=== PATIENT | female | born 1960 | race Caucasian/White ===

== ENCOUNTER → 2016-04-08 | Outpatient (CLI) | payer BC ==
[2016-04-08 08:29] LABS: Basophils % (A) 1 %; CH 32.1; CHCM 33.3; Eosinophils # (A) 0.3 k/uL (0-0.7); Eosinophils % (A) 6 %; HCT 45.1 % (34.0-46.0); HDW 2.27; HGB 14.6 gm/dL (11.4-16.0); Luc # (Auto) 0.15; Luc % (Auto) 3; Lymphocytes # (A) 2.1 k/uL (1.0-4.8); Lymphocytes % (A) 41 %; MCH 31.4 pg (25.0-35.0); MCHC 32.5 g/dL (31.0-37.0); MCV 96.7 fL (80.0-100.0); Mean Platelet Volume 9.3; Monocytes # (A) 0.3 k/uL (0-1.0); Monocytes % (A) 7 %; Neutrophils # (A) 2.1 k/uL (1.3-7.7); Neutrophils % (A) 43 %; RBC 4.66 m/uL (3.80-5.40); RDW 11.8 % (11.5-15.5); WBC (Perox) 4.97
[2016-04-08 08:42] LABS: ALT 37 U/L (9-52); AST 21 U/L (14-36); Alkaline Phosphatase 61 U/L (38-126); Anion Gap 11 mmol/L; Blood Urea Nitrogen 24 mg/dL (7-17); Calcium 9.5 mg/dL (8.4-10.2); Carbon Dioxide 27 mmol/L (22-30); Chloride 105 mmol/L (98-107); Cholesterol 226 mg/dL (<200); Glucose 97 mg/dL (74-99); HDL Cholesterol 92 mg/dL (40-60); Non-African American GFR(MDRD) >60 (>60 ml/min/1.73 sqM); Potassium 4.3 mmol/L (3.5-5.1); Sodium 143 mmol/L (137-145); Total Bilirubin 1.3 mg/dL (0.2-1.3); Total Protein 7.5 g/dL (6.3-8.2); Triglycerides 78 mg/dL (<150)
== END | disposition home or self-care (01) ==
LOC: LABWHC1 07:19
PROVIDERS: ATTEND Family Medicine
DX: M79.671 Pain in right foot (principal); Z13.220 Encounter for screening for lipoid disorders; Z13.29 Encounter for screening for other suspected endocrine disorder
CPT/HCPCS: 36415; 80053; 80061; 84443; 85025

== ENCOUNTER → 2016-08-25 | Outpatient (CLI) | payer BC ==
--- NOTE | 2016-08-26 10:31 | ECHOF ---
Referral Reason:R60.9 edema Z82.79 fa hx of other congenital malformation MEASUREMENTS -------- HEIGHT: 160.0 cm WEIGHT: 70.8 kg BP: IVSd: 1.1 cm (0.6 - 1.1) LVIDd: 4.1 cm (3.9 - 5.3) LVPWd: 0.8 cm (0.6 - 1.1) IVSs: 1.2 cm LVIDs: 2.8 cm LVPWs: 1.5 cm Ao Diam: 3.0 cm (2.0 - 3.7) AV Cusp: 1.9 cm (1.5 - 2.6) LA Diam: 2.8 cm (2.7 - 3.8) MV EXCURSION: 19.740 mm (> 18.000) MV EF SLOPE: 66 mm/s (70 - 150) EPSS: 0.5 cm MV E Devonte: 0.45 m/s MV DecT: 143 ms MV A Devonte: 0.88 m/s MV E/A Ratio: 0.51 RAP: 5.00 mmHg RVSP: 29.91 mmHg FINDINGS -------- Sinus rhythm. This was a technically good study. Left ventricular wall thickness is normal. Overall left ventricular systolic function is low-normal with, an EF between 50 - 55 %. The right ventricle is normal in size and function. The left atrium is normal in size. The right atrium is normal in size. The aortic valve is trileaflet, and appears structurally normal. No aortic stenosis or regurgitation. The mitral valve leaflets are mildly thickened. Mild mitral regurgitation is present. Mild tricuspid regurgitation present. The right ventricular systolic pressure, as measured by Doppler, is 29.91mmHg. Pulmonic valve appears structurally normal. The aortic root size is normal. The pericardium is normal. CONCLUSIONS -------- 1. Sinus rhythm. 2. Mild mitral regurgitation is present. 3. Mild tricuspid regurgitation present. 4. The right ventricular systolic pressure, as measured by Doppler, is 29.91mmHg. 5. Pulmonic valve appears structurally normal. 6. The aortic root size is normal. 7. The pericardium is normal. 8. This was a technically good study. 9. Left ventricular wall thickness is normal. 10. Overall left ventricular systolic function is low-normal with, an EF between 50 - 55 %. 11. The right ventricle is normal in size and function. 12. The left atrium is normal in size. 13. The right atrium is normal in size. 14. The aortic valve is trileaflet, and appears structurally normal. No aortic stenosis or regurgitation. 15. The mitral valve leaflets are mildly thickened. [employer] B[employer]ER: Clarita Cabello RDCS
== END | disposition home or self-care (01) ==
LOC: RADECHMAIN 12:42
PROVIDERS: ATTEND Family Medicine
DX: Z82.79 Family history of other congenital malformations, deformations and chromosomal abnormalities (principal)
CPT/HCPCS: 93306

== ENCOUNTER 2017-01-16 15:18 | Emergency (ER) | payer BC ==
[2017-01-16 16:12] VITALS: RESP 18
--- NOTE | 2017-01-16 16:12 | ED ---
General Adult HPI - General Chief complaint: Chest Pain Stated complaint: Dr Sent/EKG Time Seen by Provider: 01/16/17 16:00 Source: patient, RN notes reviewed, old records reviewed Mode of arrival: ambulatory Limitations: no limitations - History of Present Illness Initial comments: This is a 36-year-old female to the ER for evaluation of possible EKG changes. Patient had pre-surgical evaluation by family doctor within the ER for possible EKG changes. Patient is asymptomatic is been a synthetic is no chest pain or shortness of breath. Patient suffers from occasional high blood pressure doesn' t with a mildly anxious of the time is a strong family history of heart disease but again denies any symptoms at this time. - Related Data Home Medications Medication Instructions Recorded Confirmed Dextroamphetamine/Amphetamine 30 mg PO DAILY 12/19/13 01/16/17 [Adderall Xr] Ibuprofen [Motrin] 800 mg PO BID PRN 01/16/17 01/16/17 [place]-3 Fatty Acids/Fish Oil [Fish 1 cap PO DAILY 01/16/17 01/16/17 Oil 1,000 mg Softgel] Turmeric Root Extract [Turmeric] 500 mg PO DAILY 01/16/17 01/16/17 Allergies Allergy/AdvReac Type Severity Reaction Status Date / Time adhesive Allergy Rash/Hives Verified 01/16/17 16:25 codeine AdvReac Nausea & Verified 01/16/17 16:25 Vomiting Review of Systems ROS Statement: Those systems with pertinent positive or pertinent negative responses have been documented in the HPI. ROS Other: All systems not noted in ROS Statement are negative. Past Medical History Past Medical History: No Reported History History of Any Multi-Drug Resistant Organisms: None Reported Past Surgical History: Cholecystectomy, Tubal Ligation Additional Past Surgical History / Comment(s): shoulder Past Psychological History: ADD/ADHD Smoking Status: Never smoker Past Alcohol Use History: Daily Past Drug Use History: None Reported General Exam Limitations: no limitations General appearance: alert, in no apparent distress Head exam: Present: atraumatic, normocephalic, normal inspection Eye exam: Present: normal appearance, PERRL, EOMI. Absent: scleral icterus, conjunctival injection, periorbital swelling ENT exam: Present: normal exam, mucous membranes moist Neck exam: Present: normal inspection. Absent: tenderness, meningismus, lymphadenopathy Respiratory exam: Present: normal lung sounds bilaterally. Absent: respiratory distress, wheezes, rales, rhonchi, stridor Cardiovascular Exam: Present: regular rate, normal rhythm, normal heart sounds. Absent: systolic murmur, diastolic murmur, rubs, gallop, clicks GI/Abdominal exam: Present: soft, normal bowel sounds. Absent: distended, tenderness, guarding, rebound, rigid Extremities exam: Present: normal inspection, full ROM, normal capillary refill. Absent: tenderness, pedal edema, joint swelling, calf tenderness Back exam: Present: normal inspection Neurological exam: Present: alert, oriented X3, CN II-XII intact Psychiatric exam: Present: normal affect, normal mood Skin exam: Present: warm, dry, intact, normal color. Absent: rash Course Vital Signs 01/16/17 01/16/17 16:04 16:59 Temperature 97.8 F Pulse Rate 78 74 Respiratory 18 18 Rate Blood Pressure 182/84 128/66 O2 Sat by Pulse 98 99 Oximetry - Reevaluation(s) Reevaluation #1: 01/16/17 17:36 Patient remains without symptoms of chest pain EKG Findings - EKG Comments: EKG Findings:: EKG shows normal sinus rhythm rate of 84, WV 132, QRS 100, QTC 482. Compared to old EKG there is no change morphologically Medical Decision Making - Medical Decision Making 56 female in the ER for evaluation of possible troponin is negative and patient is without any symptoms. Patient will be discharged home - Lab Data Result diagrams: 01/16/17 14:10 01/16/17 14:10 Lab Results 01/16/17 01/16/17 01/16/17 Range/Units 14:10 14:10 14:10 WBC 6.3 (3.8-10.6) k/uL RBC 4.32 (3.80-5.40) m/uL Hgb 13.9 (11.4-16.0) gm/dL Hct 41.3 (34.0-46.0) % MCV 95.6 (80.0-100.0) fL MCH 32.1 (25.0-35.0) pg MCHC 33.6 (31.0-37.0) g/dL RDW 11.7 (11.5-15.5) % Plt Count 256 (150-450) k/uL Neutrophils % 62 % Lymphocytes % 25 % Monocytes % 6 % Eosinophils % 3 % Basophils % 1 % Neutrophils # 3.9 (1.3-7.7) k/uL Lymphocytes # 1.6 (1.0-4.8) k/uL Monocytes # 0.4 (0-1.0) k/uL Eosinophils # 0.2 (0-0.7) k/uL Basophils # 0.0 (0-0.2) k/uL PT (9.0-12.0) sec INR (<1.2) APTT (22.0-30.0) sec Sodium 140 (137-145) mmol/L Potassium 3.9 (3.5-5.1) mmol/L Chloride 105 (98-107) mmol/L Carbon Dioxide 23 (22-30) mmol/L Anion Gap 12 mmol/L BUN 15 (7-17) mg/dL Creatinine 0.61 (0.52-1.04) mg/dL Est GFR (MDRD) Af Amer >60 (>60 ml/min/1.73 sqM) Est GFR (MDRD) Non-Af >60 (>60 ml/min/1.73 sqM) Glucose 86 (74-99) mg/dL Calcium 9.4 (8.4-10.2) mg/dL Magnesium 2.0 (1.6-2.3) mg/dL Total Bilirubin 1.0 (0.2-1.3) mg/dL AST 19 (14-36) U/L ALT 25 (9-52) U/L Alkaline Phosphatase 70 (38-126) U/L Total Creatine Kinase 25 L (30-135) U/L CK-MB (CK-2) 0.6 (0.0-2.4) ng/mL CK-MB (CK-2) Rel Index 2.4 Troponin I <0.012 (0.000-0.034) ng/mL Total Protein 7.3 (6.3-8.2) g/dL Albumin 4.3 (3.5-5.0) g/dL 01/16/17 Range/Units 14:10 WBC (3.8-10.6) k/uL RBC (3.80-5.40) m/uL Hgb (11.4-16.0) gm/dL Hct (34.0-46.0) % MCV (80.0-100.0) fL MCH (25.0-35.0) pg MCHC (31.0-37.0) g/dL RDW (11.5-15.5) % Plt Count (150-450) k/uL Neutrophils % % Lymphocytes % % Monocytes % % Eosinophils % % Basophils % % Neutrophils # (1.3-7.7) k/uL Lymphocytes # (1.0-4.8) k/uL Monocytes # (0-1.0) k/uL Eosinophils # (0-0.7) k/uL Basophils # (0-0.2) k/uL PT 10.9 (9.0-12.0) sec INR 1.1 (<1.2) APTT 24.1 (22.0-30.0) sec Sodium (137-145) mmol/L Potassium (3.5-5.1) mmol/L Chloride (98-107) mmol/L Carbon Dioxide (22-30) mmol/L Anion Gap mmol/L BUN (7-17) mg/dL Creatinine (0.52-1.04) mg/dL Est GFR (MDRD) Af Amer (>60 ml/min/1.73 sqM) Est GFR (MDRD) Non-Af (>60 ml/min/1.73 sqM) Glucose (74-99) mg/dL Calcium (8.4-10.2) mg/dL Magnesium (1.6-2.3) mg/dL Total Bilirubin (0.2-1.3) mg/dL AST (14-36) U/L ALT (9-52) U/L Alkaline Phosphatase (38-126) U/L Total Creatine Kinase (30-135) U/L CK-MB (CK-2) (0.0-2.4) ng/mL CK-MB (CK-2) Rel Index Troponin I (0.000-0.034) ng/mL Total Protein (6.3-8.2) g/dL Albumin (3.5-5.0) g/dL Disposition Clinical Impression: Normal ECG, Well adult exam Disposition: HOME SELF-CARE Condition: Good Instructions: Normal Exam (ED) Referrals: Dakota Graff III, MD [Primary Care Provider] - 1-2 days
[2017-01-16 16:29] LABS: Basophils % (A) 1 %; CHCM 33.5; Eosinophils # (A) 0.2 k/uL (0-0.7); Eosinophils % (A) 3 %; HCT 41.3 % (34.0-46.0); HDW 2.29; HGB 13.9 gm/dL (11.4-16.0); Luc # (Auto) 0.17; Luc % (Auto) 3; Lymphocytes # (A) 1.6 k/uL (1.0-4.8); Lymphocytes % (A) 25 %; MCH 32.1 pg (25.0-35.0); MCHC 33.6 g/dL (31.0-37.0); MCV 95.6 fL (80.0-100.0); Mean Platelet Volume 8.2; Monocytes # (A) 0.4 k/uL (0-1.0); Monocytes % (A) 6 %; Neutrophils # (A) 3.9 k/uL (1.3-7.7); Neutrophils % (A) 62 %; RBC 4.32 m/uL (3.80-5.40); RDW 11.7 % (11.5-15.5); WBC 6.3 k/uL (3.8-10.6); WBC (Perox) 6.07
[2017-01-16 16:38] LABS: ALT 25 U/L (9-52); AST 19 U/L (14-36); Alkaline Phosphatase 70 U/L (38-126); Anion Gap 12 mmol/L; Blood Urea Nitrogen 15 mg/dL (7-17); Calcium 9.4 mg/dL (8.4-10.2); Carbon Dioxide 23 mmol/L (22-30); Chloride 105 mmol/L (98-107); Glucose 86 mg/dL (74-99); Non-African American GFR(MDRD) >60 (>60 ml/min/1.73 sqM); Potassium 3.9 mmol/L (3.5-5.1); Sodium 140 mmol/L (137-145); Total Protein 7.3 g/dL (6.3-8.2)
[2017-01-16 16:40] LABS: INR 1.1 (<1.2); Partial Thromboplastin Time 24.1 sec (22.0-30.0); Prothrombin Time 10.9 sec (9.0-12.0)
[2017-01-16 16:51] LABS: Creatine Kinase 25 U/L (30-135)
[2017-01-16 17:04] LABS: Creatine Kinase MB 0.6 ng/mL (0.0-2.4); Troponin I <0.012 ng/mL (0.000-0.034)
[2017-01-16 17:47] VITALS: BP 138/85; PULSE 68; TEMP 98.1
== END 2017-01-16 17:57 | disposition home or self-care (01) ==
LOC: EC 15:18
DX: Z00.00 Encounter for general adult medical examination without abnormal findings (principal); F90.9 Attention-deficit hyperactivity disorder, unspecified type; Z79.899 Other long term (current) drug therapy; Z88.5 Allergy status to narcotic agent; Z91.048 Other nonmedicinal substance allergy status
CPT/HCPCS: 36415; 80053; 82550; 82553; 83735; 84484; 85025; 85610; 85730; 93005; 99285

== ENCOUNTER → 2017-01-31 | Outpatient (CLI) | payer BC ==
[~2017-01-31] MED LIST: REGADENOSON 0.4 MG/5 ML SYRINGE IV ONE
--- NOTE | 2017-01-31 11:24 | NM ---
EXAMINATION TYPE: NM stress lexiscan cardiolite DATE OF EXAM: 01/31/2017 COMPARISON: NONE HISTORY: 56-year-old female edema and abnormal EKG TECHNIQUE: After the intravenous administration of 11.9 mCi Tc 99m Sestamibi - Cardiolite resting SP ECT images acquired 45 minutes post injection. The patient received 0.4mg Lexiscan, 27.9 mCi Tc 99m Sestamibi - Stress images obtained [address] injection FINDINGS: Review of stress and rest SPECT images demonstrates no distinct perfusion abnormality. There is promi nent GI artifact limiting assessment of the inferior wall. Gated analysis shows normal wall motion w ith an estimated left ventricular ejection fraction of 55 %. TID is calculated at 1.03, within jaren l limits. IMPRESSION: Prominent GI artifact limiting assessment of the inferior wall. No convincing scintigraphic evidence for reversible ischemia.
--- NOTE | 2017-01-31 13:01 | EST ---
EXERCISE STRESS AGE: 56 SEX: F HT: 64" WT: 154 PROTOCOL: Lexiscan Cardiolite Stress Test HEART RATE REST: 70 BLOOD PRESSURE REST: 126/79 MAXIMUM HEART RATE ACHIEVED: 96 MAXIMUM BLOOD PRESSURE: 126/79 INDICATIONS: Abnormal EKG. CLINICAL INFORMATION: Baseline rhythm is sinus mechanism, rate of 70, normal axis, left bundle branch block. Baseline blood pressure 126/79 mmHg. Patient received an injection of Lexiscan. Electrocardiographic monitoring revealed no evidence of diagnostic ischemic ST deviation. Cardiolite was injected per protocol. CONCLUSION: 1. Nondiagnostic electrocardiographic stress testing. 2. Nuclear images will be reported separately. MMODL / IJN: [id number] /
== END ==
LOC: RADNMMAIN 08:39
PROVIDERS: ATTEND Family Medicine
DX: R94.31 Abnormal electrocardiogram [ECG] [EKG] (principal); R60.9 Edema, unspecified
CPT/HCPCS: 93017; 78452; A9500; J2785

== ENCOUNTER → 2018-04-11 | Outpatient (CLI) | payer BC ==
--- NOTE | 2018-04-14 12:23 | MM ---
Reason for exam: screening (asymptomatic). Last mammogram was performed 2 years and 7 months ago. History: Patient is postmenopausal. Took hormonal contraceptives for 2 years. MG Screening Mammo w CAD Bilateral CC and MLO view(s) were taken. Prior study comparison: September 16, 2015, bilateral MG screening mammo w CAD. May 02, 2014, bilateral MG work up mamm w CAD BILAT. The breast tissue is heterogeneously dense. This may lower the sensitivity of mammography. No suspicious abnormality. No significant changes when compared with prior studies. ASSESSMENT: Negative, BI-RAD 1 RECOMMENDATION: Routine screening mammogram of both breasts in 1 year.
== END | disposition home or self-care (01) ==
LOC: RADMAMWWP 09:06
PROVIDERS: ATTEND Family Medicine
DX: Z12.31 Encounter for screening mammogram for malignant neoplasm of breast (principal)
CPT/HCPCS: 77067

== ENCOUNTER → 2019-10-16 | Outpatient (CLI) | payer BC ==
--- NOTE | 2019-10-16 10:58 | MM ---
Reason for exam: screening (asymptomatic). Last mammogram was performed 1 year and 6 months ago. History: Patient is postmenopausal. Took hormonal contraceptives for 2 years. Physical Findings: A clinical breast exam by your physician is recommended on an annual basis and results should be correlated with mammographic findings. MG Screening Mammo w CAD Bilateral CC and MLO view(s) were taken. Prior study comparison: April 11, 2018, bilateral MG screening mammo w CAD. September 16, 2015, bilateral MG screening mammo w CAD. The breast tissue is heterogeneously dense. This may lower the sensitivity of mammography. Focal asymmetry left anterior upper outer quadrant. This finding is changed when compared with previous exams. ASSESSMENT: Incomplete: need additional imaging evaluation, BI-RAD 0 RECOMMENDATION: Special view mammogram of the left breast. If lesion persists on supplemental views, image directed ultrasound is recommended. [facility] will attempt to contact patient to return for supplemental views and ultrasound if indicated.
== END | disposition home or self-care (01) ==
LOC: RADMAMWWP 07:54
PROVIDERS: ATTEND Family Medicine
DX: Z12.31 Encounter for screening mammogram for malignant neoplasm of breast (principal)
CPT/HCPCS: 77067

== ENCOUNTER 2019-11-12 09:23 | Day surgery (SDC) | payer BC, MEDICARE ==
[2019-11-07 15:23] VITALS: BMI 29.2
[~2019-11-12 09:23] MED LIST changes: +LACTATED RINGERS 1,000 ML IV SCH; +LIDOCAINE 1% (10MG/ML) FOR IV START INTRADERMA PRN; -REGADENOSON 0.4 MG/5 ML SYRINGE IV ONE
[2019-11-12 09:56] VITALS: TEMP 97.8
[2019-11-12] MEDS ORDERED: ONDANSETRON 4 MG/2 ML VIAL ONE (10:10)
[2019-11-12] MEDS ORDERED: PROPOFOL 10 MG/ML 20 ML VIAL IV ONE (10:23)
[2019-11-12] MEDS ORDERED: LIDOCAINE 1% INJ 10MG/ML (20 ML MDV) ONE (10:23)
[2019-11-12] MEDS ORDERED: GLYCOPYRROLATE 0.2 MG/ML 2 ML VIAL ONE (10:23)
--- NOTE | 2019-11-12 10:27 | P.GSHP ---
History of Present Illness H&P Date: 11/12/19 Chief Complaint: GERD, colon cancer screening 59-year-old female known to our service. She is here today for upper and lower endoscopy. Last colonoscopy 5-6 years ago. No family history of colon cancer. May have a history of polyps. Also complaints of GERD and occasional dysphagia. Mild abdominal pain. Past Medical History Past Medical History: Hyperlipidemia Additional Past Medical History / Comment(s): HAS BEEN HAVING PRBLEMS WITH FATIGUE AND SOB. STRONG FAMILY HX OF HEART DISEASE. " 3 [facility]AN[facility] HEART VALVES" History of Any Multi-Drug Resistant Organisms: None Reported Past Surgical History: Cholecystectomy, Orthopedic Surgery, Tubal Ligation Additional Past Surgical History / Comment(s): shoulder SX. HAVING COLONOSCOPY 11/12/19 Past Anesthesia/Blood Transfusion Reactions: Family History of Problems w/ Anesthesia, Motion Sickness, Postoperative Nausea & Vomiting (PONV) Additional Past Anesthesia/Blood Transfusion Reaction / Comment(s): MOM-PONV Past Psychological History: ADD/ADHD Smoking Status: Never smoker Past Alcohol Use History: Daily Past Drug Use History: None Reported - Past Family History Mother Family Medical History: Congestive Heart Failure (CHF), COPD, Coronary Artery Disease (CAD), Hyperlipidemia, Hypertension, Myocardial Infarction (PA) Brother(s) Family Medical History: Coronary Artery Disease (CAD), Myocardial Infarction (PA) Medications and Allergies Home Medications Medication Instructions Recorded Confirmed Type Dextroamphetamine/Amphetamine 30 mg PO DIRECTED 12/19/13 11/11/19 History [Adderall Xr] Turmeric Root Extract [Turmeric] 500 mg PO DAILY 01/16/17 11/11/19 History Atorvastatin Calcium [Lipitor] 20 mg PO HS 11/07/19 11/11/19 History Bacillus Coagulans [Digestive 1 each PO DAILY 11/07/19 11/11/19 History Advantage Probiotic-Prebiotic combo] Cla 1 tab PO DAILY 11/07/19 11/11/19 History Co Q-10 With Red Yeast Rice 1 tab PO DAILY 11/07/19 11/11/19 History Carol 500 mg PO DAILY 11/07/19 11/11/19 History Multivitamins, Thera [Multivitamin 1 tab PO DAILY 11/07/19 11/11/19 History (formulary)] Vitamin C/Biotin [Hair, Skin and 1 tab PO DAILY 11/07/19 11/11/19 History Nails] Allergies Allergy/AdvReac Type Severity Reaction Status Date / Time adhesive Allergy Rash/Hives Verified 11/11/19 12:28 codeine AdvReac Nausea & Verified 11/11/19 12:28 Vomiting Surgical - Exam Vital Signs Temp Pulse Resp BP Pulse Ox 97.8 F 75 20 140/77 97 11/12/19 09:54 11/12/19 09:54 11/12/19 09:54 11/12/19 09:54 11/12/19 09:54 Physical exam: General: Well-developed, well-nourished HEENT: Normocephalic, sclerae nonicteric Abdomen: Nontender, nondistended Extremities: No edema Neuro: Alert and oriented Assessment and Plan (1) GERD (gastroesophageal reflux disease) Narrative/Plan: Will proceed with upper and lower endoscopy Current Visit: Yes Status: Acute Code(s): K21.9 - GASTRO-ESOPHAGEAL REFLUX DISEASE WITHOUT ESOPHAGITIS SNOMED Code(s): 623465378
--- NOTE | 2019-11-12 10:55 | P.PCN ---
Date of Procedure: 11/12/19 Procedure(s) Performed: PREOPERATIVE DIAGNOSIS: GERD, dysphagia, colon cancer screening POSTOPERATIVE DIAGNOSIS: Gastritis, small hiatal hernia, distal esophagitis, ascending colon polyp PROCEDURE: 1. EGD with biopsy 2. Colonoscopy with snare polypectomy ANESTHESIA: [facility] [place] SURGEON: David Vega M.D. SPECIMENS:, Distal esophagus, polyp ENDOSCOPIC PROCEDURE: The patient was on the endoscopy table in the left decubitus position. The Olympus gastroscope was inserted into the oropharynx and passed under direct visualization to the region of the third portion of the duodenum. From that point the scope was slowly withdrawn inspecting all surfaces carefully. There were no neoplastic inflammatory or polypoid lesions throughout the duodenum. The pylorus was widely patent. The stomach was carefully inspected. There was mild gastritis present. Retroflexion revealed a small hiatal hernia. The GE junction was present 1.5 cm above the diaphragmatic hiatus. There were 2 small linear erosions measuring 1 cm in length at the distal esophagus. A biopsy of one of these areas of distal esophagitis took place. The remainder the esophagus appeared normal. The patient was kept on the endoscopy table in the left decubitus position. The Olympus colonoscope was inserted into the anus and passed under direct visualization to the base of the cecum. The appendiceal orifice was visualized. From that point the scope was slowly withdrawn inspecting all surfaces carefully. There were no neoplastic inflammatory or polypoid lesions throughout the cecum. In the ascending colon a small polyp seen and removed using the snare with cautery technique. The remainder of the ascending transverse desc ending sigmoid and rectum appeared normal. No visible diverticulosis. Digital rectal examination was normal. The patient was taken to the recovery room in stable condition per anesthesia guidelines. RECOMMENDATIONS: Await biopsy results. Resume antiacid therapy. Anticipate colonoscopy 5 years.
[2019-11-12] MEDS ORDERED: IV FLUID CONTINUATION 1,000 ML IV ONE (10:57)
[2019-11-12 10:59] VITALS: RESP 16
[2019-11-12 11:18] VITALS: BP 112/64; PULSE 62
== END 2019-11-12 11:40 ==
LOC: ORWHC2ENDO 09:23
PROVIDERS: ATTEND Surgery
DX: Z12.11 Encounter for screening for malignant neoplasm of colon (principal); D12.2 Benign neoplasm of ascending colon; K21.0 Gastro-esophageal reflux disease with esophagitis; K44.9 Diaphragmatic hernia without obstruction or gangrene; K29.50 Unspecified chronic gastritis without bleeding; E78.5 Hyperlipidemia, unspecified; Z82.49 Family history of ischemic heart disease and other diseases of the circulatory system; Z82.5 Family history of asthma and other chronic lower respiratory diseases; Z90.49 Acquired absence of other specified parts of digestive tract; Z98.51 Tubal ligation status; Z98.890 Other specified postprocedural states; Z79.899 Other long term (current) drug therapy; F90.9 Attention-deficit hyperactivity disorder, unspecified type; Z83.49 Family history of other endocrine, nutritional and metabolic diseases; Z88.5 Allergy status to narcotic agent; Z91.048 Other nonmedicinal substance allergy status; Z82.3 Family history of stroke; Z86.010 Personal history of colon polyps
CPT/HCPCS: 43239; 45385; 88305; J2405; J2001; J2704

== ENCOUNTER → 2019-11-13 | Outpatient (CLI) | payer MEDICARE ==
[2019-11-13 08:53] LABS: HGB 14.2 gm/dL (11.4-16.0); MCH 30.3 pg (25.0-35.0); MCHC 31.5 g/dL (31.0-37.0); MCV 96.2 fL (80.0-100.0); Mean Platelet Volume 9.2; Platelet Count 221 k/uL (150-450); RBC 4.68 m/uL (3.80-5.40); RDW 11.7 % (11.5-15.5); WBC 5.1 k/uL (3.8-10.6)
[2019-11-13 09:14] LABS: African American GFR (CKD) >90 (>60 ml/min/1.73 sqM); Anion Gap 8 mmol/L; Blood Urea Nitrogen 13 mg/dL (7-17); Carbon Dioxide 27 mmol/L (22-30); Chloride 105 mmol/L (98-107); Non-African American GFR(CKD) >90 (>60 ml/min/1.73 sqM); Potassium 4.2 mmol/L (3.5-5.1); Sodium 140 mmol/L (137-145)
== END | disposition home or self-care (01) ==
LOC: LABWHC1 08:19
PROVIDERS: ATTEND Internal Medicine Interventional Cardiology
DX: Z01.818 Encounter for other preprocedural examination (principal); R06.02 Shortness of breath
CPT/HCPCS: 36415; 80051; 82565; 84520; 85027

== ENCOUNTER → 2019-11-13 | Outpatient (CLI) | payer BC ==
--- NOTE | 2019-11-13 10:34 | MM ---
Reason for exam: additional evaluation requested from abnormal screening. Last mammogram was performed 1 month ago. History: Patient is postmenopausal. Took hormonal contraceptives for 2 years. Physical Findings: Nurse did not find any significant physical abnormalities on exam. MG Work Up Mamm w CAD LT Spot compression CC, spot compression MLO, and LM view(s) were taken of the left breast. Prior study comparison: October 16, 2019, bilateral MG screening mammo w CAD. April 11, 2018, bilateral MG screening mammo w CAD. The breast tissue is heterogeneously dense. This may lower the sensitivity of mammography. Several nodules upper outer quadrant left breast. These results were verbally communicated with the patient and result sheet given to the patient on 11/13/19. ASSESSMENT: Incomplete: need additional imaging evaluation, BI-RAD 0 RECOMMENDATION: Ultrasound of the left breast.
--- NOTE | 2019-11-13 10:36 | USB ---
Reason for exam: additional evaluation requested from abnormal screening. History: Patient is postmenopausal. Took hormonal contraceptives for 2 years. US Breast Workup Limited LT Left limited breast ultrasound including focal area of concern, retroareolar and axilla demonstrates a 5 x 5 x 6mm oval, cystic lesion at 1 o'clock, a 6 x 3 x 6mm oval, cystic lesion at 2 o'clock and a 6mm oval lymph node at the axilla. These results were verbally communicated with the patient and result sheet given to the patient on 11/13/19. ASSESSMENT: Benign, BI-RAD 2 RECOMMENDATION: Return to routine screening mammogram schedule for both breasts.
== END | disposition home or self-care (01) ==
LOC: RADMAMWWP 08:42
PROVIDERS: ATTEND Family Medicine
DX: R92.8 Other abnormal and inconclusive findings on diagnostic imaging of breast (principal)
CPT/HCPCS: 77065

== ENCOUNTER 2019-11-18 07:49 | Day surgery (SDC) | payer MEDICARE ==
[2019-11-11 12:35] VITALS: BMI 29.2
[~2019-11-18 07:49] MED LIST changes: +ALPRAZolam 0.25 MG TAB PO PRN; +ALPRAZolam 0.5 MG TAB PO PRN; +ASPIRIN 325 MG TAB PO ONE; +ATORVASTATIN 80 MG TAB PO ONE; -LACTATED RINGERS 1,000 ML IV SCH; -LIDOCAINE 1% (10MG/ML) FOR IV START INTRADERMA PRN; +NITROGLYCERIN SL TABS 0.4 MG TAB SUBLINGUAL PRN; +SODIUM CHLORIDE 0.9% 1,000 ML in EMPTY BAG 1 BAG IV ONE
[2019-11-18 08:27] VITALS: RESP 16; TEMP 98.8
[2019-11-18] MEDS ORDERED: SODIUM CHLORIDE 0.9% 1,000 ML IV ONE (08:28)
[2019-11-18] MEDS ORDERED: LIDOCAINE 1% INJ 10MG/ML (20 ML MDV) ONE (08:36)
[2019-11-18] MEDS ORDERED: VERAPAMIL 2.5 MG/ML 2 ML AMP ONE (08:36)
[2019-11-18] MEDS ORDERED: HEPARIN SODIUM 1,000 UN/ML (10ML VL) ONE (08:51)
[2019-11-18] MEDS ORDERED: fentaNYL (PF) 50 MCG/ML 2 ML AMP ONE (08:51)
[2019-11-18] MEDS ORDERED: LIDOCAINE 1% INJ 10MG/ML (20 ML MDV) SQ ONE (09:07)
[2019-11-18] MEDS ORDERED: fentaNYL (PF) 50 MCG/ML 2 ML AMP IVP ONE (09:08)
[2019-11-18] MEDS ORDERED: MIDAZOLAM 2 MG/2 ML VIAL IVP ONE ×2 (09:09)
[2019-11-18] MEDS ORDERED: HEPARIN SODIUM 1,000 UN/ML (10ML VL) IV ONE (09:12)
[2019-11-18] MEDS: VERAPAMIL SYRINGE (5 MG/10 ML) INTRAARTER ONE ×2 (09:13→09:24)
[2019-11-18] MEDS ORDERED: IOPAMIDOL-370 125ML BTL INJ ONE (09:23)
[2019-11-18] MEDS ORDERED: RX INFO: IV CONTRAST WAS GIVEN 1 EACH MISC MISCELLANE PRN (09:32)
[2019-11-18] MEDS ORDERED: SODIUM CHLORIDE 0.9% 1,000 ML IV SCH (09:45)
[2019-11-18] MEDS ORDERED: PANTOPRAZOLE 40 MG TABLET PO STA (10:33)
--- NOTE | 2019-11-18 12:15 | LTR ---
DATE OF SERVICE: 11/18/2019 RE: Linda Marcus Dear Dr. Church; Ms. Linda Marcus underwent today a coronary angiogram and that revealed normal coronaries. The patient is going to be discharged home. Thank you for allowing us to participate in her care and please do not hesitate to call if any question or concern. Sincerely, MD ADE Clinton / ANA ROSA: [phone] /
--- NOTE | 2019-11-18 12:15 | CC ---
CARDIAC CATHETERIZATION REPORT DATE OF SERVICE: 11/18/2019 PERFORMING PHYSICIAN: Waqar Hawkins MD. PROCEDURE PERFORMED: Selective right and left coronary angiogram. INDICATION: This is a very pleasant 59-year-old female patient with very significant family history of coronary artery disease who was experiencing symptoms of shortness of breath with exertion concerning for severe underlying coronary artery disease. COMPLICATION: None. LEVEL OF SEDATION: Moderate with sedation length of 9 minutes. PROCEDURE DESCRIPTION: After obtaining an informed consent, the patient was brought to the cardiac rn labor and delivery. The right common femoral artery was cannulated using micropuncture sodium. The right radial artery was cannulated using micropuncture technique, the micropuncture wire passed easily then I placed a 6-Mongolian sheath in the right radial artery. After that I gave the patient 2 mg of verapamil IA and 7000 units of heparin IV. Selective right and left coronary angiogram performed using JR4 and JL3.5 catheters. The procedure was completed without any complication. SELECTIVE CORONARY ANGIOGRAM: 1. The right coronary artery is a large caliber vessel. It is a dominant vessel and appeared to be angiographically normal. It distally bifurcates into PDA and PLV branches and both appeared to be angiographically normal. 2. The left main is angiographically normal, it bifurcates into LCX and LAD. 3. The LCX is a large caliber vessel and it is a nondominant vessel. The LCX is angiographically normal. 4. The LAD is a large caliber vessel. The LAD is angiographically normal it gives rise in the midportion into first and second diagonal branches both appeared to be angiographically normal. CONCLUSION: Normal coronary angiogram POSTPROCEDURE MANAGEMENT: 1. Medical treatment. 2. Follow up with the patient. MMODL / IJN: [id number] /
[2019-11-18 16:27] VITALS: BP 116/72; PULSE 72
== END 2019-11-18 14:35 | disposition home or self-care (01) ==
LOC: CATHCVL 07:49
PROVIDERS: ATTEND Internal Medicine Interventional Cardiology
DX: I20.0 Unstable angina (principal); I34.0 Nonrheumatic mitral (valve) insufficiency; E78.5 Hyperlipidemia, unspecified; Z72.0 Tobacco use; Z88.5 Allergy status to narcotic agent; Z91.048 Other nonmedicinal substance allergy status; Z79.899 Other long term (current) drug therapy; Z82.49 Family history of ischemic heart disease and other diseases of the circulatory system
CPT/HCPCS: 93454; C1769 ×2; C1894; J2250; J2001; J3010; J1644; Q9967

== ENCOUNTER → 2020-12-08 | Outpatient (CLI) | payer BC ==
--- NOTE | 2020-12-08 15:35 | XR ---
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 Uncovertebral joint arthropathy lower cerv ical spine. Mild degenerative disc disease mid to lower cervical spine. Trace grade 1 anterolisthesis C2-C3 no prevertebral soft tissue swelling or predental space widening. No discrete lytic lesion see n. CHEST: No discrete lytic lesion of the ribs. Heart normal size. Lungs and pleural spaces appear clear . Humeri: Either some postsurgical or post traumatic widening of the left AC joint. Degenerative spurri ng at the left glenohumeral joint. Moderate degenerative change right AC joint. No discrete lytic les ion is seen. Calvarium: No discrete lytic lesion. The mandible also appears clear. A couple arachnoid granulations on the frontal view. Pelvis: Mild degenerative spurring at both hips. Degenerative spurring at the right SI joint. No disc rete lytic lesion. Thoracic spine: 12 thoracic vertebral bodies. All pedicles are visualized. Mild to moderate degenerat ronald disc disease lower thoracic spine. Vertebral body heights are preserved. Degenerative grade 1 ant erolisthesis at a couple levels of the upper thoracic spine. Lumbar spine: 5 lumbar type vertebral bodies. Mild to moderate degenerative disc disease throughout. Hypertrophic facet arthropathy. Degenerative grade 1 retrolisthesis L1-L2 and L2-L3. Vertebral body h eights are preserved. Femurs: No discrete lytic lesions. IMPRESSION: Degenerative changes especially throughout the spine, right AC joint, left glenohumeral joint, and mi ld within the hips. No suspicious lytic lesion identified.
== END | disposition home or self-care (01) ==
LOC: RADXRMAIN 08:18
PROVIDERS: ATTEND Internal Medicine Hematology & Oncology
DX: M47.819 Spondylosis without myelopathy or radiculopathy, site unspecified (principal); M19.011 Primary osteoarthritis, right shoulder; M19.012 Primary osteoarthritis, left shoulder; M16.0 Bilateral primary osteoarthritis of hip
CPT/HCPCS: 77075

== ENCOUNTER → 2020-12-29 | Outpatient (CLI) | payer BC ==
--- NOTE | 2020-12-29 11:18 | MM ---
Reason for exam: screening (asymptomatic). Last mammogram was performed 1 year and 2 months ago. History: Patient is postmenopausal. Took hormonal contraceptives for 2 years. Physical Findings: A clinical breast exam by your physician is recommended on an annual basis and results should be correlated with mammographic findings. MG Screening Mammo w CAD Bilateral CC and MLO view(s) were taken. Prior study comparison: November 13, 2019, left breast MG work up mamm w CAD LT. October 16, 2019, bilateral MG screening mammo w CAD. The breast tissue is heterogeneously dense. This may lower the sensitivity of mammography. There is chronic nodularity bilaterally. There is no discrete abnormality. ASSESSMENT: Benign, BI-RAD 2 RECOMMENDATION: Routine screening mammogram of both breasts in 1 year.
== END | disposition home or self-care (01) ==
LOC: RADMAMWWP 07:17
PROVIDERS: ATTEND Family Medicine
DX: Z12.31 Encounter for screening mammogram for malignant neoplasm of breast (principal); Z78.0 Asymptomatic menopausal state
CPT/HCPCS: 77067

== ENCOUNTER → 2022-01-03 | Outpatient (CLI) | payer BC ==
--- NOTE | 2022-01-03 10:39 | MM ---
Reason for Exam: Screening (asymptomatic). Last screening mammogram was performed 12 month(s) ago. Patient History: Menarche at age 11. First Full-Term at age 22. Postmenopausal. Patient has history of breast feeding. Patient used Hormonal Contraceptives for 2 years. Risk Values: Malini 5 year model risk: 1.4%. NCI Lifetime model risk: 6.2%. Prior Study Comparison: 09/16/2015 Bilateral Screening Mammogram, [facility]. 04/11/2018 Bilateral Screening Mammogram, [facility]. 10/16/2019 Bilateral Screening Mammogram, [facility]. 11/13/2019 Left Diagnostic Mammogram, [facility]. 12/29/2020 Bilateral Screening Mammogram, [facility]. Tissue Density: The breast tissue is heterogeneously dense. This may lower the sensitivity of mammography. Findings: Analyzed By CAD. There appears to be some chronic nodularity present bilaterally. No suspicious groups of microcalcifications, spiculated or lobular masses, architectural distortion or other secondary signs of malignancy are mammographically apparent. Overall Assessment: Benign, BI-RAD 2 Management: Screening Mammogram of both breasts in 1 year. A negative mammogram report should not preclude additional follow up of suspicious palpable abnormalities. Patient should continue monthly self breast exam. A clinical breast exam by your physician is recommended on an annual basis and results should be correlated with mammographic findings. Electronically signed and approved by: Bhavik Morejon D.O. Radiologis
== END | disposition home or self-care (01) ==
LOC: RADMAMWWP 07:15
PROVIDERS: ATTEND Family Medicine
DX: Z12.31 Encounter for screening mammogram for malignant neoplasm of breast (principal); Z78.0 Asymptomatic menopausal state
CPT/HCPCS: 77067

== ENCOUNTER → 2023-01-10 | Outpatient (CLI) | payer BC ==
--- NOTE | 2023-01-11 09:28 | MM ---
Reason for Exam: Screening (asymptomatic). Last screening mammogram was performed 12 month(s) ago. Patient History: Menarche at age 11. First Full-Term at age 22. Postmenopausal. Patient has history of breast feeding. Patient used Hormonal Contraceptives for 2 years. Risk Values: Malini 5 year model risk: 1.4%. NCI Lifetime model risk: 6.0%. Prior Study Comparison: 11/13/2019 Left Diagnostic Mammogram, [facility]. 12/29/2020 Bilateral Screening Mammogram, [facility]. 01/03/2022 Bilateral MG screening mammo w CAD, [facility]. Tissue Density: The breast tissue is heterogeneously dense. This may lower the sensitivity of mammography. Findings: Analyzed By CAD. There is no suspicious group of microcalcifications or new suspicious mass in either breast. Overall Assessment: Benign, BI-RAD 2 Management: Screening Mammogram of both breasts in 1 year. . Patient should continue monthly self-breast exams. A clinical breast exam by your physician is recommended on an annual basis. This exam should not preclude additional follow-up of suspicious palpable abnormalities. Note on Malini scores and lifetime risk: 1. A Malini score greater than 3% is considered moderate risk. If this is the case, consider specialist referral to assess eligibility for a risk reducing agent. 2. If overall lifetime risk for the development of breast cancer is 20% or higher, the patient may qualify for future screening with alternating mammogram and breast MRI. Electronically signed and approved by: Cali Barker M.D. Radiologis
== END | disposition home or self-care (01) ==
LOC: RADMAMWWP 07:16
PROVIDERS: ATTEND Family Medicine
DX: Z12.31 Encounter for screening mammogram for malignant neoplasm of breast (principal); Z78.0 Asymptomatic menopausal state
CPT/HCPCS: 77067

== ENCOUNTER → 2024-01-17 | Outpatient (CLI) | payer BC ==
--- NOTE | 2024-01-17 13:27 | BD ---
EXAMINATION TYPE: Axial Bone Density DATE OF EXAM: 01/17/2024 CLINICAL HISTORY: 63 years old Female. ICD-10 CODE: Z78.0 POST MENOPAUSAL Height: 5 ft 2 in Weight: 176 FRAX RISK QUESTIONS: Alcohol (3 or more units per day): yes Family History (Parent hip fracture): no Glucocorticoids (More than 3mos): no (Ex: prednisone, prednisolone, methylprednisolone, dexamethasone, and hydrocortisone). History of Fracture in Adulthood: no Secondary Osteoporosis: no 1. Type 1 Diabetes: no 2. Hyperthyroidism: no 3. Menopause before 45: no 4. Malnutrition: no 5. Chronic liver disease: no Rheumatoid Arthritis: no Current Tobacco Use: no RISK FACTORS HISTORY OF: Surgery to Spine/Hip(right/left)/Wrist (right/left): no MEDICATIONS: Thyroid Medications: none Osteoporosis Medications: none EXAM MEASUREMENTS: Bone mineral densitometry was performed using the [employer] System. Bone mineral density as measured about the Lumbar spine is: ----- L1-L4(G/cm2): 1.474 T Score Values are as follows: ----- L1: 1.3 ----- L2: 2.5 ----- L3: 3.9 ----- L4: 2.0 ----- L1-L4: 2.4 Z Score Values are as follows: ----- L1: 2.3 ----- L2: 3.5 ----- L3: 5.0 ----- L4: 3.0 ----- L1-L4: 3.5 baseline Bone mineral density about the R hip (g/cm2): 0.813 Bone mineral density about the L hip (g/cm2): 0.901 T Score values are as follows: -----R Neck: -1.6 -----L Neck: -1.0 -----R Total: -0.7 -----L Total: 0.3 Z Score values are as follows: -----R Neck: -0.5 -----L Neck: 0.1 -----R Total: 0.1 -----L Total: 1.1 baseline FRAX%s: The graph provided illustrates a 10.6 % chance for a major osteoporotic fx and a 1.5 % chance for the hips probability for fx in 10 years time. IMPRESSION: Normal (Values between +1 and -1 indicate normal bone mass). Consider repeating this study in 5 year s or sooner if there is some new clinical indication. NOTE: T-SCORE=SD OF THE YOUNG ADULT MEAN. [facility], , 01/17/2024 1:25 PM
--- NOTE | 2024-01-18 09:36 | MM ---
Reason for Exam: Screening (asymptomatic). Last screening mammogram was performed 12 month(s) ago. Patient History: Menarche at age 11. First Full-Term at age 22. Postmenopausal. Patient has history of breast feeding. Patient used Hormonal Contraceptives for 2 years. Risk Values: Malini 5 year model risk: 1.4%. NCI Lifetime model risk: 5.8%. Prior Study Comparison: 12/29/2020 Bilateral Screening Mammogram, [facility]. 01/03/2022 Bilateral MG screening mammo w CAD, [facility]. 01/10/2023 Bilateral MG screening mammo w CAD, [facility]. Tissue Density: The breasts are heterogeneously dense, which may obscure small masses. Findings: Analyzed By CAD. There is no suspicious group of microcalcifications or new suspicious mass in either breast. Overall Assessment: Benign, BI-RAD 2 Management: Screening Mammogram of both breasts in 1 year. . Patient should continue monthly self-breast exams. A clinical breast exam by your physician is recommended on an annual basis. This exam should not preclude additional follow-up of suspicious palpable abnormalities. Note on Malini scores and lifetime risk: 1. A Malini score greater than 3% is considered moderate risk. If this is the case, consider specialist referral to assess eligibility for a risk reducing agent. 2. If overall lifetime risk for the development of breast cancer is 20% or higher, the patient may qualify for future screening with alternating mammogram and breast MRI. [facility], , 01/18/2024 9:33 AM. Electronically signed and approved by: Cali Barker M.D. Radiologis
== END | disposition home or self-care (01) ==
LOC: RADMAMWWP 07:24
PROVIDERS: ATTEND Family Medicine
CPT/HCPCS: 77067; 77080

== ENCOUNTER → 2024-08-14 | Outpatient (CLI) | payer MEDICARE, BC ==
--- NOTE | 2024-08-14 09:41 | MR ---
EXAMINATION TYPE: MR kidney wo/w con DATE OF EXAM: 08/14/2024 7:51 AM COMPARISON: Outside CT abdomen and pelvis July 17, [address] CLINICAL INDICATION: Female, 64 years old with history of D41.01 KIDNEY CANCER, Right sided abdominal pain, abnormal CT. IV Contrast: 8 cc Gadobutrol (None if empty) CONTRAST: Standard multiplanar, multisequence MRI departmental protocol images were obtained without contrast a nd with 8 mL intravenous Gadobutrol gadolinium contrast. FINDINGS: Kidneys: There are some prominent but simple appearing thin-walled parapelvic cysts centrally mid to lower pole of the left kidney redemonstrated. There is redemonstration of 2.6 cm simple appearing thi n-walled cyst lower pole left kidney coronal image 22. Right kidney shows a few small central simple appearing parapelvic cysts. Area of concern posterior l ateral aspect upper to mid pole of the right kidney shows some diminished T1 and T2 signal with corti harmony volume loss. Area is definitive abnormal enhancement less prominent versus recent CT measuring ro ughly 1.2 cm longest axis coronal image 28 with enhancement similar to adjacent cortex on coronal edilson ges. No hydronephrosis seen bilaterally. Other: A few simple-appearing thin-walled cysts scattered throughout the liver are redemonstrated. Th e spleen and both adrenal glands appear within normal limits. The pancreas is unremarkable. No suspic ious bowel dilatation. No free fluid in the abdomen. Dextroconvex scoliosis centered at L2-L3 level i n the spine is redemonstrated. IMPRESSION: Area of concern posterior lateral aspect of the upper to mid pole right kidney is less prominent or s maller size versus recent CT with some focal cortical volume loss suggesting a resolving infectious p rocess. Correlate clinically for recent focal pyelonephritis. Patient does not state history of inter loida surgery. Given some persistent abnormal signal and slight enhancement underlying neoplasm not ent irely excluded. Short-term follow-up CT in one to 2 months time can be performed to reevaluate based on clinical correlation. [facility], , 08/14/2024 9:38 AM
== END | disposition home or self-care (01) ==
LOC: RADMRIMAIN 07:04
PROVIDERS: ATTEND Urology
DX: D41.01 Neoplasm of uncertain behavior of right kidney (principal); Z85.528 Personal history of other malignant neoplasm of kidney
CPT/HCPCS: 74183; A9585